=== PATIENT | male | born 1985 | race Caucasian/White ===

== ENCOUNTER 2018-12-28 20:47 | Emergency (ER) | payer BC, OTHER ==
[2018-12-28 21:30] VITALS: BP 113/75
[2018-12-28] MEDS ORDERED: Penicillin VK TAB* 250 MG PO ONE (21:43)
--- NOTE | 2018-12-28 21:50 | UC ---
[facility] HPI - HPI Summary HPI Summary: 33 yo male with right sided jaw pain Has bad teeth no trauma - History of Current Complaint Chief Complaint: UCDentalProblem Stated Complaint: RT SIDE JAW PAIN Time Seen by Provider: 12/28/18 21:38 Hx Obtained From: Patient Onset/Duration: Sudden Onset Severity: Mild Pain Intensity: 2 Pain Scale Used: 0-10 Numeric Aggravating Factor(s): Chewing Dental: 1 - absent - Allergies/Home Medications Allergies/Adverse Reactions: Allergies Allergy/AdvReac Type Severity Reaction Status Date / Time No Known Allergies Allergy Verified 12/28/18 21:30 Home Medications: Home Medications Acetaminophen [Tylenol Extra Strength] 2 tab PO ONCE 12/28/18 [History Confirmed 12/28/18] Ibuprofen 600 mg PO ONCE 12/28/18 [History Confirmed 12/28/18] PMH/Surg Hx/FS Hx/Imm Hx Previously Healthy: Yes Other History Of: Negative For: HIV, Hepatitis C - Surgical History Surgical History: None - Family History Known Family History: Positive: None Family History: no know family history of cardiovascular disorders - Social History Alcohol Use: Occasionally Substance Use Type: None Smoking Status (MU): Light Every Day Tobacco Smoker Type: Cigarettes Amount Used/How Often: 6 cigs a day Length of Time of Smoking/Using Tobacco: since age 16 Have You Smoked in the Last Year: Yes When Did the Patient Quit Smoking/Using Tobacco: since - Immunization History Most Recent Influenza Vaccination: no Review of Systems All Other Systems Reviewed And Are Negative: Yes Constitutional: Positive: Negative Skin: Positive: Negative Eyes: Positive: Negative ENT: Positive: Dental Pain, Ear Ache - R Respiratory: Positive: Negative Cardiovascular: Positive: Negative Gastrointestinal: Positive: Negative Genitourinary: Positive: Negative Motor: Positive: Negative Neurovascular: Positive: Negative Musculoskeletal: Positive: Negative Neurological: Positive: Negative Psychological: Positive: Negative Physical Exam Triage Information Reviewed: Yes Appearance: Well-Appearing, No Pain Distress, Well-Nourished Vital Signs: Initial Vital Signs Temp 97.2 F 12/28/18 21:25 Pulse 75 12/28/18 21:25 Resp 18 12/28/18 21:25 BP 113/75 12/28/18 21:25 Pulse Ox 98 12/28/18 21:25 Vital Signs Reviewed: Yes Eyes: Positive: Conjunctiva Clear ENT: Positive: Hearing grossly normal. Negative: Nasal congestion, Nasal drainage, TMs normal - unable to vis right cue to cerumen, Trismus, Muffled voice, Hoarse voice Dental: Positive: Gross Decay/Caries @ Neck: Positive: Supple, Nontender, No Lymphadenopathy Respiratory: Positive: Lungs clear, Normal breath sounds, No respiratory distress, No accessory muscle use Cardiovascular: Positive: RRR, No Murmur Musculoskeletal: Positive: ROM Intact, No Edema Neurological: Positive: Alert Psychological Exam: Normal Skin Exam: Normal Re-Evaluation - Re-Evaluation First Eval Re-Evaluation Time: 22:03 Change: Improved - TM visualized and normal Dental Complaint Course/Dx - Differential Dx/Diagnosis Provider Diagnosis: Dentalgia, Impacted cerumen, right ear Discharge - Sign-Out/Discharge Documenting (check all that apply): Patient Departure All imaging exams completed and their final reports reviewed: No Studies - Discharge Plan Condition: Stable Disposition: HOME Prescriptions: Penicillin VK 500 MG TAB(NF) [Penicillin VK 500 mg Tab] 500 mg PO QID #28 tab Patient Education Materials: Toothache (ED), Cerumen Impaction (ED) Referrals: Jessica Leon MD [Primary Care Provider] - If Needed Additional Instructions: [facility] HPI - HPI Summary HPI Summary: 33 yo male with right sided jaw pain Has bad teeth no trauma - History of Current Complaint Chief Complaint: UCDentalProblem Stated Complaint: RT SIDE JAW PAIN Time Seen by Provider: 12/28/18 21:38 Hx Obtained From: Patient Onset/Duration: Sudden Onset Severity: Mild Pain Intensity: 2 Pain Scale Used: 0-10 Numeric Aggravating Factor(s): Chewing Dental: 1 - absent - Allergies/Home Medications Allergies/Adverse Reactions: Allergies Allergy/AdvReac Type Severity Reaction Status Date / Time No Known Allergies Allergy Verified 12/28/18 21:30 Home Medications: Home Medications Acetaminophen [Tylenol Extra Strength] 2 tab PO ONCE 12/28/18 [History Confirmed 12/28/18] Ibuprofen 600 mg PO ONCE 12/28/18 [History Confirmed 12/28/18] PMH/Surg Hx/FS Hx/Imm Hx Previously Healthy: Yes Other History Of: Negative For: HIV, Hepatitis C - Surgical History Surgical History: None - Family History Known Family History: Positive: None Family History: no know family history of cardiovascular disorders - Social History Alcohol Use: Occasionally Substance Use Type: None Smoking Status (MU): Light Every Day Tobacco Smoker Type: Cigarettes Amount Used/How Often: 6 cigs a day Length of Time of Smoking/Using Tobacco: since age 16 Have You Smoked in the Last Year: Yes When Did the Patient Quit Smoking/Using Tobacco: since - Immunization History Most Recent Influenza Vaccination: no Review of Systems All Other Systems Reviewed And Are Negative: Yes Constitutional: Positive: Negative Skin: Positive: Negative Eyes: Positive: Negative ENT: Positive: Dental Pain, Ear Ache - R Respiratory: Positive: Negative Cardiovascular: Positive: Negative Gastrointestinal: Positive: Negative Genitourinary: Positive: Negative Motor: Positive: Negative Neurovascular: Positive: Negative Musculoskeletal: Positive: Negative Neurological: Positive: Negative Psychological: Positive: Negative Physical Exam Triage Information Reviewed: Yes Appearance: Well-Appearing, No Pain Distress, Well-Nourished Vital Signs: Initial Vital Signs Temp 97.2 F 12/28/18 21:25 Pulse 75 12/28/18 21:25 Resp 18 12/28/18 21:25 BP 113/75 12/28/18 21:25 Pulse Ox 98 12/28/18 21:25 Vital Signs Reviewed: Yes Eyes: Positive: Conjunctiva Clear ENT: Positive: Hearing grossly normal. Negative: Nasal congestion, Nasal drainage, TMs normal - unable to vis right cue to cerumen, Trismus, Muffled voice, Hoarse voice Dental: Positive: Gross Decay/Caries @ Neck: Positive: Supple, Nontender, No Lymphadenopathy Respiratory: Positive: Lungs clear, Normal breath sounds, No respiratory distress, No accessory muscle use Cardiovascular: Positive: RRR, No Murmur Musculoskeletal: Positive: ROM Intact, No Edema Neurological: Positive: Alert Psychological Exam: Normal Skin Exam: Normal Dental Complaint Course/Dx - Differential Dx/Diagnosis Provider Diagnosis: Dentalgia, Impacted cerumen, right ear Discharge - Sign-Out/Discharge Documenting (check all that apply): Patient Departure All imaging exams completed and their final reports reviewed: No Studies - Discharge Plan Condition: Stable Disposition: HOME Prescriptions: Penicillin VK 500 MG TAB(NF) [Penicillin VK 500 mg Tab] 500 mg PO QID #28 tab Patient Education Materials: Toothache (ED), Cerumen Impaction (ED) Referrals: Jessica Leon MD [Primary Care Provider] - If Needed - Billing Disposition and Condition Condition: STABLE Disposition: Home you need to get in to see a dentist To ER for new or worsening symptoms - Billing Disposition and Condition Condition: STABLE Disposition: Home
== END 2018-12-28 22:11 | disposition home or self-care (01) ==
LOC: UCCORT 20:47
DX: K08.89 Other specified disorders of teeth and supporting structures (principal); H61.21 Impacted cerumen, right ear; F17.210 Nicotine dependence, cigarettes, uncomplicated
CPT/HCPCS: 99213; A9270-GY; G0463